=== PATIENT | female | born 1955 | race Caucasian/White ===

== ENCOUNTER 2018-12-04 08:38 | Outpatient (CLI) | payer MEDICARE, OTHER ==
--- NOTE | 2018-12-04 11:22 | ULT ---
CAROTID ULTRASOUND WITH DOPPLER: Date: 12/04/18 HISTORY: Hypertension. COMPARISON: None. TECHNIQUE: Dominguez scale, color flow, Doppler imaging, and spectral waveform analysis performed in the carotid and vertebral arteries. FINDINGS: RIGHT CAROTID: There is intimal thickening of the common carotid artery. No significant atherosclerotic disease. Pea k systolic velocity in the common carotid artery is 106 cm/second. Peak systolic velocity in the inte rnal carotid artery is 68.3 cm/second. Systolic ICA/CCA ratio is 0.64. LEFT CAROTID: There is intimal thickening of the left common carotid artery. There is no significant atheroscleroti c disease. Peak systolic velocity in the common carotid artery is 72.1 cm/second. Peak systolic veloc ity in the internal carotid artery is 85.7 cm/second. Systolic ICA/CCA ratio is 1.2. Antegrade flow in bilateral vertebral arteries. IMPRESSION: No sonographic evidence of hemodynamically significant stenosis. POS: OFF
== END 2018-12-04 08:39 | disposition home or self-care (01) ==
LOC: BICULT 08:38
PROVIDERS: ATTEND Nurse Practitioner Family
DX: I10 Essential (primary) hypertension (principal); E78.2 Mixed hyperlipidemia; D58.2 Other hemoglobinopathies; I73.89 Other specified peripheral vascular diseases; M1A.9XX0 Chronic gout, unspecified, without tophus (tophi)
CPT/HCPCS: 93880

== ENCOUNTER 2019-07-03 09:43 | Outpatient (CLI) | payer MEDICARE ==
--- NOTE | 2019-07-03 10:08 | BD ---
EXAM: DEXA bone density examination HISTORY: 64-year-old postmenopausal female for screening COMPARISON: None FINDINGS: L1--bone mineral density 0.812 g/sq cm; T score -1.6 L2--bone mineral density 0.809 g/sq cm; T score -2.0 L3--bone mineral density 0.812 g/sq cm; T score -2.5 L4--bone mineral density 0.805 g/sq cm; T score -2.3 Total L1-L4--bone mineral density 0.809 g/sq cm; T score -2.2 Left femoral neck--bone mineral density0.682; T score -1.5 Total proximal left femur--bone mineral density 0.864; T score -0.6 IMPRESSION: Osteopenia This patient has a 10 year WHO fracture risk of a major osteoporotic fracture of 8.4% and of a hip fracture of 1.0%.
--- NOTE | 2019-07-03 10:32 | RAD ---
EXAM: 4 views of the right knee HISTORY: Knee pain COMPARISON: None FINDINGS: No knee effusion is seen. There is no evidence of acute fracture or dislocation. Mild jaramillo lofemoral degenerative changes are seen. No soft tissue swelling is present. IMPRESSION: No evidence of acute osseous abnormality.
== END 2019-07-03 09:44 | disposition home or self-care (01) ==
LOC: BICMAMMO 09:43
PROVIDERS: ATTEND Nurse Practitioner Family
DX: Z13.820 Encounter for screening for osteoporosis (principal); M25.561 Pain in right knee; M85.80 Other specified disorders of bone density and structure, unspecified site
CPT/HCPCS: 77080

== ENCOUNTER 2020-01-24 08:14 | Outpatient (CLI) | payer MEDICARE ==
--- NOTE | 2020-01-24 09:59 | RAD ---
RADIOGRAPH CHEST 2 VIEWS: DATE: 01/24/2020 HISTORY: 64-year-old female with family history of lung cancer FINDINGS: There is no airspace density, pulmonary edema, pleural effusion, pneumothorax, or cardiomegaly. No [place] spicious pulmonary mass. No hilar enlargement. No mediastinal widening. IMPRESSION: No evidence of active disease
--- NOTE | 2020-01-29 08:38 | MMO ---
Bilateral MAMMO Bilat Screen [facility]. CLINICAL HISTORY: Patient is 64 years old and is seen for screening. The patient has the following family history of breast cancer: paternal grandmother, malignant (generic). The patient has no personal history of cancer. VIEWS: The views performed were: bilateral craniocaudal with tomosynthesis and bilateral mediolateral oblique with tomosynthesis. FILMS COMPARED: The present examination has been compared to prior imaging studies performed at 09/13/2018. This study has been interpreted with the assistance of computer-aided detection. MAMMOGRAM FINDINGS: There are scattered fibroglandular densities. There are stable benign appearing calcifications seen in both breasts. There are no suspicious masses, suspicious calcifications, or new areas of architectural distortion. IMPRESSION: THERE IS NO MAMMOGRAPHIC EVIDENCE OF MALIGNANCY. A ROUTINE FOLLOW-UP MAMMOGRAM IN 1 YEAR IS RECOMMENDED. THE RESULTS OF THIS EXAM WERE SENT TO THE PATIENT. ACR BI-RADS Category 2 - Benign finding MAMMOGRAPHY NOTE: 1. A negative mammogram report should not delay a biopsy if a dominant of clinically suspicious mass is present. 2. Approximately 10% to 15% of breast cancers are not detected by mammography. 3. Adenosis and dense breasts may obscure an underlying neoplasm. Reported by: TARA BEAUCHAMP MD Electonically Signed: [id number]
== END 2020-01-24 08:15 | disposition home or self-care (01) ==
LOC: BICMAMMO 08:14
PROVIDERS: ATTEND Nurse Practitioner Family
DX: Z12.31 Encounter for screening mammogram for malignant neoplasm of breast (principal); Z80.3 Family history of malignant neoplasm of breast; Z80.1 Family history of malignant neoplasm of trachea, bronchus and lung
CPT/HCPCS: 71046; 77063; 77067

== ENCOUNTER 2020-09-30 10:47 | Outpatient (CLI) | payer MEDICARE, OTHER | END 2020-09-30 10:48 | disposition home or self-care (01) | LOC: TBSIIMAG 10:47 | PROVIDERS: ATTEND Nurse Practitioner Family | DX: I10 Essential (primary) hypertension (principal); R26.9 Unspecified abnormalities of gait and mobility; E78.2 Mixed hyperlipidemia; R89.9 Unspecified abnormal finding in specimens from other organs, systems and tissues; D58.2 Other hemoglobinopathies; I73.89 Other specified peripheral vascular diseases; M1A.9XX0 Chronic gout, unspecified, without tophus (tophi); R63.4 Abnormal weight loss; Z80.1 Family history of malignant neoplasm of trachea, bronchus and lung | CPT/HCPCS: 70551 ==

== ENCOUNTER 2021-02-10 09:07 | Outpatient (CLI) | payer MEDICARE, OTHER | END 2021-02-10 09:08 | disposition home or self-care (01) | LOC: BICMAMMO 09:07 | PROVIDERS: ATTEND Nurse Practitioner Family | DX: Z12.31 Encounter for screening mammogram for malignant neoplasm of breast (principal); Z80.3 Family history of malignant neoplasm of breast | CPT/HCPCS: 77063; 77067 ==

== ENCOUNTER 2021-03-24 08:38 | Outpatient (CLI) | payer MEDICARE, OTHER | END 2021-03-24 08:39 | disposition home or self-care (01) | LOC: BICULT 08:38 | PROVIDERS: ATTEND Psychiatry & Neurology Neurology | DX: I65.23 Occlusion and stenosis of bilateral carotid arteries (principal); E78.5 Hyperlipidemia, unspecified | CPT/HCPCS: 93880 ==